=== PATIENT | male | born 1950 | race Caucasian/White ===

== ENCOUNTER → 2018-04-11 | Outpatient (CLI) | payer MEDICARE | END | disposition home or self-care (01) | LOC: KCIC MRI 09:15 | DX: M51.37 Other intervertebral disc degeneration, lumbosacral region (principal); M43.16 Spondylolisthesis, lumbar region; M48.061 Spinal stenosis, lumbar region without neurogenic claudication; N28.1 Cyst of kidney, acquired | CPT/HCPCS: 72148 ==

== ENCOUNTER → 2018-12-08 | Outpatient (CLI) | payer MEDICARE | END | disposition home or self-care (01) | LOC: LAB 08:05 | PROVIDERS: ATTEND Psychiatry & Neurology Neurology with Special Qualifications in Child Neurology | DX: G31.84 Mild cognitive impairment of uncertain or unknown etiology (principal) | CPT/HCPCS: 36415; 82607; 82746; 85651 ==

== ENCOUNTER → 2018-12-08 | Outpatient (CLI) | payer MEDICARE ==
[~2018-12-08] MED LIST: REGADENOSON 0.4 MG/5 ML DISP.SYRIN. IV ONE
--- NOTE | 2018-12-08 10:39 | RAD ---
MR#: [id number] Date of Study: 12/08/2018 Ordering Physician: CASEY FLETCHER, Referring Physician: CASEY FLETCHER, Tech: Norah Ugarte RDMS RVT APPROVED REPORT Patient Location: OUT-PATIENT Laterality:Bilateral Indications Dizziness and Vertigo Doppler Spectral Velocity Analysis Right Left mCCA 85/20 cm/smCCA 92/25 cm/s ECA 65/ cm/sECA 65/ cm/s pICA 117/16 cm/spICA 85/24 cm/s [place] 42/14 cm/smICA 62/17 cm/s dICA 45/17 cm/sdICA 73/27 cm/s ICA/CCA 1.38ICA/CCA 0.90 Findings Giron scale images of the bilateral carotid arteries reveal mild intimal hyperplasia. Spectral waveforms and color doppler reveal normal waveforms. Velocities are within normal limits, overall 0-50% stenosis. Normal ICA/CCA ratio. Normal antegrade vertebral velocities. Critical Notification Critical Value: No <Conclusion> No significant carotid occlusive disease. Signed by : Manoj Rinaldi, Electronically Approved : 12/08/2018 10:38:27
--- NOTE | 2018-12-08 13:17 | RAD ---
MR#: [id number] Date of Study: 12/08/2018 Ordering Physician: CASEY FLETCHER, Referring Physician: ZAID MURILLO Tech: GARFIELD French APPROVED REPORT Test Type: Pharmacological Stress Nurse/Tech: Linsey Enrique RN Test Indications: Chest Pain Cardiac History: Hypertension, Arrythmia Medications: See Electronic Medical Record Medical History: See Electronic Medical Record Resting ECG: SB Resting Heart Rate: 53 bpm Resting Blood Pressure: 108/71mmHg Pretest Chest Pain: No chest pain Nurse/Tech Notes S1S2, Lungs CTA Consent: The procedure was explained to the patient in lay terms. Informed consent was witnessed. Bernard eout was entered into [employer]. History and Stress Test performed by SHANNON Juarez, SIDNEYT (R) (N) Pharm. Details Pharmacologic stress testing was performed using 0.4mg per 5ml of regadenoson given intravenously ove r 7-10 seconds. Stress Symptoms Dizziness, Flushing, Chest pain pressure 4/10. Chest pain resolved at end of test. POST EXERCISE Reason for Termination: Infusion complete Max HR: 88 bpm Max Blood Pressure: 111/74mmHg Blood Pressure response to exercise: Normal blood pressure response during stress. Chest Pain: Yes. Chest pain and pressure rate 4/10. Resolved by end of test. Arrhythmia: No. ST Change: No. INTERPRETATION Stress EKG Conclusion: Baseline EKG showed sinus rhythm. No ischemic changes at peak stress. No arr hythmias. Imaging Protocol IMAGE PROTOCOL: Rest Tc-99m/stress Tc-99m 1 day Rest: Stress: Viability: Radiopharm.Tc99m NqgnjopkjWi30c Sestamibi Dose9.8mCi 32mCi Duration 15min. 13min. Img Date 12/08/2018 12/08/2018 Inj-Img [id number]. 60min. Rest Admin Site:IV - Left AntecubitalAdministrator:SHANNON Juarez, ARRT (R)(N) Stress Admin Site: IV - Left AntecubitalAdministrator: SHANNON Juarez, ARRT (R)(N) STRESS DATA End Diast. Vol.111.0mlLVEDV index BSA57.0ml End Syst. Vol.38.0mlLVESV index BSA19.0ml Myocardial Zkcq190.0gEject. [place]53.0% Stress Scores Regional WT0.00Summed WT0.00 Regional WM0.00Summed WM10.00 Study quality was good. Left Ventricular size was Normal at Rest and Stress. Lung uptake was . Left Ventricular ejection fraction is 66%. The rest and stress images show normal perfusion, normal contraction and thickening. LV Perf. Quant 17 Seg. SSS0.00 17 Seg. SRS0.00 17 Seg. SDS0.00 Stress Defect Extent (% LAD)0.00Rest Defect Extent (% LAD)0.00Rev. Defect Extent (% LAD)0.00 Stress Defect Extent (% LCX) 0.00Rest Defect Extent (% LCX)0.00Rev. Defect Extent (% LCX)0.00 Stress Defect Extent (% RCA)0.00Rest Defect Extent (% RCA)0.00Rev. Defect Extent (% RCA)0.00 Stress Defect Extent (% OMAR)0.00Rest Defect Extent (% OMAR)0.00Rev. Defect Extent (% OMAR)0.00 Conclusion 1. Regadenoson cardioisotope stress test did not show any evidence of ischemia or infarct. 2. Normal left ventricular systolic function with ejection fraction calculated at 66%. 3. Low risk for cardiac events. Signed by : Ketan White, Electronically Approved : 12/08/2018 13:17:11
== END | disposition home or self-care (01) ==
LOC: NM 10:55
PROVIDERS: ATTEND Internal Medicine Cardiovascular Disease
DX: I77.3 Arterial fibromuscular dysplasia (principal); I65.23 Occlusion and stenosis of bilateral carotid arteries; I10 Essential (primary) hypertension
CPT/HCPCS: 78452; 93017; 93880; 96374; A9500; J2785

== ENCOUNTER → 2020-04-16 | Outpatient (CLI) | payer MEDICARE ==
--- NOTE | 2020-04-16 11:07 | RAD ---
HAND RIGHT 2V History: Reason: FALL AT HOME,PAIN TO LITTLE FINGER / Spl. Instructions: / History: Technique: 2 views right hand. Comparison: None. Findings: Right fifth proximal interphalangeal joint dislocation with dorsal dislocation of the middle findings in relation to the proximal phalanx. No acute fracture. Impression: 1. Right fifth proximal interphalangeal joint dislocation. Electronically signed by: Ochoa Cruz DO (04/16/2020 11:04 AM) [id number]
== END | disposition home or self-care (01) ==
LOC: RAD 10:19
PROVIDERS: ATTEND Family Medicine
DX: S63.286A Dislocation of proximal interphalangeal joint of right little finger, initial encounter (principal); W18.39XA Other fall on same level, initial encounter; Y93.89 Activity, other specified; Y92.098 Other place in other non-institutional residence as the place of occurrence of the external cause; Y99.8 Other external cause status
CPT/HCPCS: 73120

== ENCOUNTER → 2020-04-23 | Outpatient (CLI) | payer MEDICARE ==
--- NOTE | 2020-04-23 17:27 | RAD ---
2 view study of the right hand Clinical indications: Dislocation of little finger. Follow-up study. COMPARISON: April 16, 2020. FINDINGS: Again seen is dorsal medial dislocation of the fifth middle phalanx with respect to the fifth proximal phalanx with override. No acute fracture or lytic process is seen. IMPRESSION: Persistent unchanged dislocation of the fifth PIP joint. Electronically signed by: Doug Adames MD (04/23/2020 5:25 PM) [id number]
== END | disposition home or self-care (01) ==
LOC: RAD 10:16
PROVIDERS: ATTEND Family Medicine
DX: S63.287D Dislocation of proximal interphalangeal joint of left little finger, subsequent encounter (principal); X58.XXXD Exposure to other specified factors, subsequent encounter
CPT/HCPCS: 73120

== ENCOUNTER → 2020-05-31 | Outpatient (CLI) | payer MEDICARE ==
--- NOTE | 2020-05-31 16:56 | KCIC ---
Five-view lumbar spine series Clinical indications: Lumbago with right-sided sciatica. Status post fall 2 months ago. FINDINGS: No compression fracture or discitis or lytic process evident. There is a grade 1 anterolisthesis of L4-5. Facet arthropathy seen at this level and also at L5-S1. No radiolucent pars defect is seen. Mild rotatory dextroscoliosis is seen. The transverse processes are intact. Mild degenerative disc space narrowing and degenerative endplate spurring is seen at L4-5. IMPRESSION: No acute compression fracture. Grade 1 anterolisthesis of L4-5 secondary to facet arthropathy. Electronically signed by: Doug Adames MD (05/31/2020 4:53 PM) [id number]
--- NOTE | 2020-05-31 17:02 | KCIC ---
3 view study of the sacrum and coccyx Clinical indications: Lumbago with right-sided sciatica. Status post fall 2 months ago. FINDINGS: There is asymmetric ankylosis of the upper right SI joint. The left SI joint is patent. There is mild degenerative spurring of the inferior aspect of both SI joints. No erosive arthropathy is evident. No diastases is seen. No acute fracture or lytic process is seen. 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 Electronically signed by: Doug Adames MD (05/31/2020 4:59 PM) [id number]
== END ==
LOC: KCIC 14:03
PROVIDERS: ATTEND Family Medicine
DX: M47.816 Spondylosis without myelopathy or radiculopathy, lumbar region (principal); M43.28 Fusion of spine, sacral and sacrococcygeal region; M16.10 Unilateral primary osteoarthritis, unspecified hip; M54.41 Lumbago with sciatica, right side
CPT/HCPCS: 72110; 72202